=== PATIENT | female | born 1985 | race Caucasian/White ===

== ENCOUNTER 2022-03-06 14:03 | Outpatient (RCR) | payer OTHER, SELFPAY | END 2022-03-18 23:59 | LOC: NS 14:03 | DX: Z71.3 Dietary counseling and surveillance (principal); E66.01 Morbid (severe) obesity due to excess calories; Z68.41 Body mass index [BMI] 40.0-44.9, adult | CPT/HCPCS: 97802 ==

== ENCOUNTER 2022-04-03 13:33 | Outpatient (RCR) | payer OTHER, SELFPAY | END 2022-04-17 23:59 | LOC: NS 13:33 | DX: Z71.3 Dietary counseling and surveillance (principal); E66.01 Morbid (severe) obesity due to excess calories; Z68.41 Body mass index [BMI] 40.0-44.9, adult | CPT/HCPCS: 97803 ==

== ENCOUNTER 2022-05-01 14:02 | Outpatient (RCR) | payer OTHER, SELFPAY | END 2022-05-18 23:59 | LOC: NS 14:02 | PROVIDERS: Referring Provider Nurse Practitioner; Visit Provider Nurse Practitioner | DX: Z71.3 Dietary counseling and surveillance (principal); E66.01 Morbid (severe) obesity due to excess calories; Z68.41 Body mass index [BMI] 40.0-44.9, adult | CPT/HCPCS: 97803 ==

== ENCOUNTER 2022-06-19 13:59 | Outpatient (RCR) | payer OTHER, SELFPAY | END 2022-07-18 23:59 | LOC: NS 13:59 | PROVIDERS: Referring Provider Nurse Practitioner; Visit Provider Nurse Practitioner | DX: Z71.3 Dietary counseling and surveillance (principal); E66.01 Morbid (severe) obesity due to excess calories; Z68.41 Body mass index [BMI] 40.0-44.9, adult | CPT/HCPCS: 97803 ==

== ENCOUNTER 2022-07-31 13:55 | Outpatient (RCR) | payer OTHER, SELFPAY | END 2022-08-18 23:59 | LOC: NS 13:55 | PROVIDERS: Referring Provider Nurse Practitioner; Visit Provider Nurse Practitioner | DX: Z71.3 Dietary counseling and surveillance (principal); E66.01 Morbid (severe) obesity due to excess calories; Z68.41 Body mass index [BMI] 40.0-44.9, adult | CPT/HCPCS: 97803 ==

== ENCOUNTER 2022-10-30 13:47 | Outpatient (RCR) | payer OTHER, SELFPAY | END 2022-11-18 23:59 | LOC: NS 13:47 | PROVIDERS: Referring Provider Nurse Practitioner; Visit Provider Nurse Practitioner | DX: Z71.3 Dietary counseling and surveillance (principal); E66.01 Morbid (severe) obesity due to excess calories; Z68.41 Body mass index [BMI] 40.0-44.9, adult | CPT/HCPCS: 97803 ==

== ENCOUNTER 2023-07-01 08:51 | Emergency (ER) | payer OTHER, SELFPAY ==
[2023-07-01 08:52] VITALS: BP 145/107; PULSE 81; RESP 16; TEMP 36.5; O2SAT 98; BMI 52.1
--- NOTE | 2023-07-01 09:21 | CT_ITS ---
STUDY: CT BRAIN WITHOUT CONTRAST REASON FOR EXAM: Female, 38 years old. Headache for several weeks. RADIATION DOSAGE (If Supplied By Facility): CTDIvol = ( 44.99 ) mGy, DLP = ( 762.36 ) mGycm TECHNIQUE: Transaxial CT imaging of the brain was performed without administration of intravenous contrast material. Individualized dose optimization techniques were used for this CT. COMPARISON: No relevant priors. FINDINGS: Normal soft tissue structures. Normal calvarium. Normal size ventricles and extra-axial spaces for the patient''s age. Normal white matter tracts of the cerebral hemispheres. Normal basal ganglia and thalami. Normal brainstem. Normal cerebellum. There is no intracranial hemorrhage. There are no findings of an acute ischemic infarction. Normal visualized paranasal sinuses. CT/Brain/Head without Contrast IMPRESSION: Normal unenhanced CT scan of the brain. Electronically Signed: Chaz Spring MD at 10:34 EDT ,
--- NOTE | 2023-07-01 09:23 | EX.ED.VIS.HA ---
HPI History of Present Illness Chief Complaint: Headache Informant: patient Narrative Narrative: Presents with what she describes as a migraine. She gets an aura which is a tingling sensation in her face on the right. A bit later she gets headache which she describes as pressure. She will get photophobia. She gets nausea but has not had vomiting. No recent trauma. No fevers. No lower extremity numbness tingling weakness or discoordination. Patient does have a history of migraines going back to about 8 years of age. But they seem to go away for a while in her teenage years. Since October she has been having various neurologic issues. She does occasionally get tingling of her fingertips and toes although she is not having it now. She sometimes feels nauseated. She still sometimes feels just slightly unsteady. She has seen neurologist, home health outreach coordinator, neuro-home health outreach coordinator and others. She has had an MRI and an MRV. But the headaches have really started coming back more recently. Her last headache like this was a week ago. It went away and now it is back again. Normally if she takes Motrin it is good enough to go away. She thinks she usually took Excedrin or Excedrin Migraine when she was younger. PFSH PFS Home Medications levothyroxine 50 mcg tablet 75 mcg PO DAILY 04/29/14 [History Last Taken 07/28/16] Allergy/AdvReac Type Severity Reaction Status Date / Time No Known Drug Allergies Allergy Unknown Verified 07/01/23 08:55 Social History Smoking Status: Never smoker ROS ROS ED ROS Narrative A complete review of systems was performed and is negative except as documented in the history of present illness. Some specific details below. Constitutional: No recent fevers or chills. No rigors. Patient has not generally felt ill. She has had intermittent numbness tingling and mild sense of instability going on for almost a year for which she has been worked up. EYE: No discharge, visual complaints, or pain. 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 This is also been evaluated 6th cranial nerve palsy ENT: No difficulty swallowing. No swelling. No sinus pressure or pain. No nasal discharge. No change in hearing. No ear pain. CV: No chest pain, pressure or aching. No palpitations or irregular beats. Patient has not been presyncopal or syncopal. Respiratory: No trouble breathing. No cough. No wheezing. No sputum production. No pain with breathing. GI: No abdominal pain. No nausea vomiting diarrhea. No blood in stool. : No frequency dysuria or hematuria. Musculoskeletal: No recent trauma. No pains. No swelling. Skin: No rash. No diaphoresis. Neuro: No weakness or numbness at this time. No difficulty with speaking. No difficulty understanding speech. No visual loss. Please see history of present illness also. Endocrine: No polyuria or polydipsia. EXAM Physical Exam Narrative Exam Narrative: CONSTITUTIONAL: Patient is nontoxic in appearance. The patient looks comfortable. Of note, she is in a dark room. HEENT: No notable trauma. Mucous membranes moist. No sinus tenderness. Tympanic membranes are normal. No temporal artery tenderness. No facial rashes or swelling. No vesicles. EYES: No conjunctival injection. No proptosis. No ptosis noted. No pain with range of motion. She does get slight diplopia when looking far to the left from her longstanding cranial nerve palsy. But this is chronic and unchanged per patient. Just mild photophobia NECK: No meningismus. No JVD. Range of motion is normal looking up down left and right without discomfort. CARDIOVASCULAR: Regular rate. Regular rhythm. No notable murmur. No JVD. RESPIRATORY: No respiratory distress. Breathing is unlabored. No wheezes. No rhonchi. No rales. No pain with a deep breath. GASTROINTESTINAL: Not distended. Bowel sounds are normal. No tenderness. No guarding. No rebound. GENITOURINARY: No tenderness over the bladder. No CVA tenderness. MUSCULOSKELETAL: Atraumatic. No peripheral edema. No cord. No tenderness along the deep venous system. No asymmetry. NEUROLOGICAL: Patient is alert and oriented. No focal deficit noted other than ophthalmologic finding as above. NIH stroke scale is 0. SKIN: No noted rashes. No diaphoresis. No vesicles noted. PSYCHIATRIC: Patient is calm. Mood is appropriate. Const Vital Signs: 07/01/23 08:52 Temperature 97.7 F L Temperature Source Temporal Pulse Rate 81 Respiratory Rate 16 Blood Pressure 145/107 H Blood Pressure Mean 119 Pulse Ox 98 Oxygen Delivery Method Room Air MDM MDM MDM Narrative Medical decision making narrative: My independent interpretation the patient's CT of the head without contrast shows 6 or sign of bleeding. Final reading shows normal unenhanced CT scan of the brain. I rechecked the patient. She was resting. She is easily aroused. She admits to feeling tired from the medicines. The headache is better but not completely gone. She still has a little bit of pressure. But she is quite a bit improved. We discussed that she has been having intermittent symptoms. She has history of migraines. I do not think she needs a lumbar puncture. This is not the worst headache of her life. Its not thunderclap. There is no neurologic symptom. There is no fever. I do not think this study would be appropriate or beneficial. I do not think blood work is going to help us in this case. Radiography Diagnostic Testing: Clinical Impression(s) from Imaging Studies Brain CT 07/01/23 09:21 IMPRESSION: Normal unenhanced CT scan of the brain. Electronically Signed: Chaz Spring MD at 10:34 EDT , Discharge Plan Triage Chief Complaint: Headache ED Provider: Antonio King Dx/Rx/DC Orders Clinical Impression: Migraine Instructions: ED, Migraine (Classical) Prescriptions: No Action levothyroxine 50 MCG tablet 75 mcg PO DAILY Primary Care Provider: Gris Suazo Referrals: Gris Suazo MD [Primary Care Provider] - 3-5 Days Disposition Disposition: Home, Self Care
[2023-07-01] MEDS: DiphenhydrAMINE 50 MG/ML Syringe IV (10:00)
[2023-07-01] MEDS: proCHLORPERazine 10 MG/2 ML Vial IV (10:00)
[2023-07-01] MEDS: 0.9% Normal Saline (1000mL) 1,000 ML 999 ML IV (10:00)
[2023-07-01] MEDS: Ketorolac 15 MG/ML Vial IV (11:29)
[2023-07-01 11:33] VITALS: BP 138/96
== END 2023-07-01 11:36 | disposition home or self-care (01) ==
PROVIDERS: Emergency Provider Emergency Medicine; PCP Internal Medicine; Visit Provider Emergency Medicine
DX: G43.909 Migraine, unspecified, not intractable, without status migrainosus (principal)
CPT/HCPCS: 70450; 96361; 96374; 96375; 99282; J7030; A4216

== ENCOUNTER 2023-07-14 23:05 | Emergency (ER) | payer OTHER, SELFPAY ==
[2023-07-14 23:05] VITALS: BP 127/92; PULSE 79; RESP 15; TEMP 35.9; O2SAT 99; BMI 53.2
[2023-07-15 00:58] VITALS: BP 145/94; PULSE 75; RESP 18; O2SAT 98
--- NOTE | 2023-07-15 02:02 | EDS_ITS ---
HPI History of Present Illness Chief Complaint: Other, Pain/Inj Informant: patient Narrative Narrative: Patient is a 38-year-old female with past medical history of hypothyroidism. She states that last night she began noticing some discomfort in her upper mid abdomen. She states that there was no trauma or excessive activity prior to the pain beginning and she denies any known sick contact. She states she felt slightly nauseous with this. She states as the hours past the pain which was initially sharp became more dull but then seemed to radiate below into her lower abdomen. She states she could not sleep secondary to the persistent symptoms and therefore comes in for evaluation [facility] Home Medications levothyroxine 50 mcg tablet 75 mcg PO DAILY 04/29/14 [History Last Taken 07/28/16] Allergy/AdvReac Type Severity Reaction Status Date / Time No Known Drug Allergies Allergy Unknown Verified 07/14/23 23:11 Social History Smoking Status: Never smoker ROS ROS ED Constitutional Constitutional ED: Denies chills or fever(s) ENT ENT ED: Denies sore throat Cardiovascular Cardiovascular: Denies chest pain Respiratory/Chest Respiratory/Chest: Denies cough or dyspnea Gastrointestinal Gastrointestinal: Reports abdominal pain and nausea; Denies diarrhea or vomiting Genitourinary Genitourinary ED: Denies dysuria or urinary frequency Musculoskeletal Musculoskeletal: Denies myalgias Integumentary Denies rash Neurologic Neurologic: Denies headache(s) Hematologic/Lymphatic Hematologic/Lymphatic: Denies easy bleeding or easy bruising EXAM Physical Exam Const Vital Signs: 07/14/23 23:05 07/15/23 00:58 07/15/23 00:05 Temperature 96.6 F L Temperature Source Temporal Pulse Rate 79 75 Respiratory Rate 15 18 Respiratory Effort Normal Respiratory Pattern Normal Blood Pressure 127/92 H 145/94 H Blood Pressure Mean 103 111 Pulse Ox 99 98 Oxygen Delivery Method Room Air Room Air 07/15/23 02:06 Temperature Temperature Source Pulse Rate 82 Respiratory Rate 18 Respiratory Effort Respiratory Pattern Blood Pressure Blood Pressure Mean Pulse Ox 100 Oxygen Delivery Method Positive well nourished, well developed and obese General Appearance ED: well developed Nutritional Appearance: obese HEENT Reports moist mucous membranes HEENT Narrative: No signs of infection noted in the posterior pharynx Eyes PERRL and EOMs intact bilaterally General Eye ED: Negative for scleral icterus Neck supple Resp normal respiratory effort and clear to auscultation bilaterally Cardio regular rate and regular rhythm Rate: other Other Details: Radial and carotid pulses are equal and symmetric GI non-distended GI Narrative: Abdomen is soft and nondistended with normal active bowel sounds. There is pain on palpation in the midepigastric region without voluntary guarding or rigidity. No pulsatile mass or fluid wave. Negative Olivas sign. Auscultation: normoactive bowel sounds Palpation: soft Back/Spine no CVA tenderness Extremity normal to inspection Neuro oriented x3, CN's II-XII intact bilaterally and no sensory deficits noted Sensorium / Orientation: alert Motor Exam: strength 5/5 throughout Psych mental status grossly normal Skin no rashes or lesions noted General Skin Exam: Negative for jaundice MDM MDM MDM Narrative Medical decision making narrative: Patient presented to the ER with stable vitals and a soft nonsurgical abdomen. Differential diagnosis is for biliary colic versus pancreatitis versus gastritis versus gastroenteritis. Secondary to this I did discuss with patient obtaining basic abdominal lab and treating symptoms of potential gastritis with Pepcid and a GI cocktail. The patient states that as I have low concern that this could be cardiac and that this is most likely intestinal in nature she does not feel the need to stay in the hospital any longer or obtain testing as her main concern was for cardiac in nature. Therefore at this time as abdomen is soft and nonsurgical vitals are stable and patient is having improving symptoms without any treatment she is otherwise safe for discharge. History & Record Review Discussion w/independent historian: Patient Discharge Plan Triage Chief Complaint: Other, Pain/Inj ED Provider: Caio Lawrence Dx/Rx/DC Orders Clinical Impression: Nonspecific abdominal pain, Morbid obesity Instructions: Abdominal Pain Prescriptions: No Action levothyroxine 50 MCG tablet 75 mcg PO DAILY Primary Care Provider: Gris Suazo Referrals: Gris Suazo MD [Primary Care Provider] - Disposition Disposition: Home, Self Care Discharge Date/Time: 07/15/23 02:06
--- NOTE | 2023-07-15 02:05 | ED.RN ---
PT did not want to wait for blood work to be completed. I'm tired and since I now know its not my heart I'll take some tums when I get home. docotor updated
[2023-07-15 02:06] VITALS: PULSE 82; RESP 18; O2SAT 100
== END 2023-07-15 02:06 | disposition home or self-care (01) ==
PROVIDERS: Emergency Provider Emergency Medicine; PCP Internal Medicine; Visit Provider Emergency Medicine
DX: R10.9 Unspecified abdominal pain (principal); E66.01 Morbid (severe) obesity due to excess calories; E03.9 Hypothyroidism, unspecified; Z79.899 Other long term (current) drug therapy
CPT/HCPCS: 99282